=== PATIENT | female | born 1980 | race Caucasian/White ===

== ENCOUNTER 2020-03-01 18:36 | Emergency (ER) | payer MEDICAID ==
[~2020-03-01] VITALS: Ht 172.7 cm; Wt 72.7 kg
--- NOTE | 2020-03-01 19:44 | NUR ---
TIEN BIANCHI [phone]. [facility]
[2020-03-01] MEDS ORDERED: ondansetron 4mg rapidly disintigrating tab PO ONE (20:00)
[2020-03-01] MEDS ORDERED: HYDROcodone/acetaminophen 5mg/325mg tablet PO ONE (20:00)
[2020-03-01] MEDS ORDERED: TETanus/Pertussis (Acell)/Diphther VAC/PF (Tdap-Adult) 0.5ml syringe IMVAC ONE (20:05)
[2020-03-01] MEDS ORDERED: IBUP-1984 PO (20:54)
[2020-03-01] MEDS ORDERED: AMOX-422 PO (20:54)
[2020-03-01 21:11] VITALS: BP 119/89
== END 2020-03-01 21:14 | disposition home or self-care (01) ==
LOC: ER 18:37
DX: S61.250A Open bite of right index finger without damage to nail, initial encounter (principal); S51.851A Open bite of right forearm, initial encounter; S31.159A Open bite of abdominal wall, unspecified quadrant without penetration into peritoneal cavity, initial encounter; Z79.2 Long term (current) use of antibiotics; Z79.899 Other long term (current) drug therapy; Y04.1XXA Assault by human bite, initial encounter; Y93.89 Activity, other specified; Y92.89 Other specified places as the place of occurrence of the external cause; Y99.8 Other external cause status
CPT/HCPCS: 72128; 73130; 74150; 90471; 90715; 99285